=== PATIENT | male | born 1965 | race Caucasian/White ===

== ENCOUNTER 2017-12-07 10:40 | Emergency (ER) | payer SELFPAY ==
--- NOTE | 2017-12-07 11:42 | RAD ---
RADIOGRAPH LEFT ANKLE 3 VIEWS: DATE: 12/07/17. HISTORY: A 52-year-old male with left ankle pain. COMPARISON: The prior study of 04/09/06 is not available for comparison. FINDINGS: There are old, healed fracture deformities of the lateral malleolus (oblique fracture), and posterior malleolus. There is mild to moderate osteophytosis at the inferior tip of the medial malleolus. An kle mortise is symmetrical. Talar dome is maintained. There is mild soft tissue edema circumferenti ally at the ankle. IMPRESSION: 1. Old, healed fracture deformities of the lateral malleolus and posterior malleolus. 2. Mild osteoarthrosis of the ankle. 3. Mild soft tissue edema of the ankle. 4. No acute fracture. POS: [facility]
== END 2017-12-07 12:43 | disposition short-term general hospital (02) ==
LOC: NAV ERS 10:40
DX: M25.572 Pain in left ankle and joints of left foot (principal); I10 Essential (primary) hypertension; F17.210 Nicotine dependence, cigarettes, uncomplicated
CPT/HCPCS: 85379